=== PATIENT | male | born 1990 | race Caucasian/White ===

== ENCOUNTER 2018-02-15 05:07 | Emergency (ER) | payer OTHER ==
[~2018-02-15] VITALS: Ht 167.6 cm; Wt 47.6 kg
[2018-02-15 05:07] VITALS: BP_SYST 146
[2018-02-15 05:40] VITALS: BP_SYST 144
== END 2018-02-15 05:40 ==
LOC: SED 05:07
DX: Z02.89 Encounter for other administrative examinations (principal)